=== PATIENT | male | born 1950 | race Caucasian/White ===

== ENCOUNTER 2019-07-13 10:39 | Inpatient (IN) ==
[2019-07-13 11:17] LABS: Basophils # 0.1 K/mcL (0.0-0.2); Basophils % 1.3 %; Eosinophils # 0.2 K/mcL (0.0-0.6); Eosinophils % 3.9 %; Hematocrit 37.6 % (37.5-50.1); Hemoglobin 12.3 g/dL (12.9-16.9); Immature Granulocytes % 0.3 % (0-4); Lymphocytes # 0.8 K/mcL (0.6-4.6); Lymphocytes % 19.3 %; Mean Corpuscular HGB Conc 32.7 g/dL (31.6-35.5); Mean Corpuscular Hemoglobin 31.4 pg (28.0-33.3); Mean Corpuscular Volume 95.9 fL (83.0-100.0); Mean Platelet Volume 11.7 fL (9.4-12.4); Monocytes # 0.4 K/mcL (0.0-1.3); Monocytes % 10.3 %; Neutrophils # 2.5 K/mcL (1.6-8.9); Platelet Count 168 K/mcL (140-400); Red Blood Count 3.92 M/mcL (4.19-5.50); Red Cell Distribution Width 14.6 % (11.5-14.5); Segmented Neutrophils % 64.9 %; White Blood Count 3.9 K/mcL (4.3-11.1)
[2019-07-13] MEDS ORDERED: Isovue-370 500 ML BOTTLE IVP ONE (11:29)
[2019-07-13 11:35] LABS: BUN/Creatinine Ratio 16 (6-26); Blood Urea Nitrogen 20 mg/dL (8-23); Carbon Dioxide 28 mEq/L (23-29); Chloride 105 mEq/L (98-107); Glucose 103 mg/dL (70-105); Osmolality,Calculated 297 (280-300); Potassium 4.7 mEq/L (3.5-5.1); Sodium 142 mEq/L (136-145); Troponin I < 0.03 ng/mL (< 0.04); eGFR For African Americans > 60 (> 60); eGFR For Non-African Americans 59 (> 60)
[2019-07-13] MEDS ORDERED: Naloxone 0.4 MG/ML INJ IVP PRN (16:44)
[2019-07-13] MEDS ORDERED: Ondansetron 4 MG/2 ML VIAL IVP PRN (16:44)
[2019-07-13] MEDS ORDERED: Acetaminophen 325 MG TABLET PO PRN (16:44)
[2019-07-13] MEDS: *HR* HYDROcodone/Acet 5/325 mg TABLET PO PRN (20:34)
[2019-07-13] MEDS: *HR* Heparin 5,000 UNIT/ML VIAL SQ SCH (20:35)
[2019-07-14 06:01] LABS: INR 1.1; Prothrombin Time 12.5 Seconds (9.4-12.1)
[2019-07-14 06:09] LABS: Basophils # 0.1 K/mcL (0.0-0.2); Basophils % 1.6 %; Eosinophils # 0.2 K/mcL (0.0-0.6); Eosinophils % 4.1 %; Hematocrit 36.6 % (37.5-50.1); Hemoglobin 12.3 g/dL (12.9-16.9); Immature Granulocytes % 0.3 % (0-4); Lymphocytes # 1.1 K/mcL (0.6-4.6); Lymphocytes % 29.1 %; Mean Corpuscular HGB Conc 33.6 g/dL (31.6-35.5); Mean Corpuscular Hemoglobin 31.8 pg (28.0-33.3); Mean Corpuscular Volume 94.6 fL (83.0-100.0); Mean Platelet Volume 11.8 fL (9.4-12.4); Monocytes # 0.5 K/mcL (0.0-1.3); Monocytes % 12.6 %; Neutrophils # 1.9 K/mcL (1.6-8.9); Platelet Count 162 K/mcL (140-400); Red Blood Count 3.87 M/mcL (4.19-5.50); Red Cell Distribution Width 14.4 % (11.5-14.5); Segmented Neutrophils % 52.3 %; White Blood Count 3.6 K/mcL (4.3-11.1)
[2019-07-14 06:24] LABS: BUN/Creatinine Ratio 11 (6-26); Blood Urea Nitrogen 14 mg/dL (8-23); Calcium 8.5 mg/dL (8.6-10.3); Carbon Dioxide 25 mEq/L (23-29); Chloride 105 mEq/L (98-107); Chol/HDL Ratio 2.5 (0-4.9); Cholesterol 90 mg/dL (< 200); Glucose 91 mg/dL (70-105); HDL Cholesterol 36 mg/dL (40-59); LDL Cholesterol,Calculated 36 mg/dL (0-99); Magnesium 1.9 mg/dL (1.6-2.6); Osmolality,Calculated 292 (280-300); Potassium 3.9 mEq/L (3.5-5.1); Sodium 141 mEq/L (136-145); Triglycerides 90 mg/dL (< 150); Troponin I < 0.03 ng/mL (< 0.04); eGFR For African Americans > 60 (> 60); eGFR For Non-African Americans 59 (> 60)
[2019-07-14] MEDS: *HR* Heparin 5,000 UNIT/ML VIAL SQ SCH ×2 (06:25→16:18)
[2019-07-14] MEDS: *HR* HYDROcodone/Acet 5/325 mg TABLET PO PRN ×3 (09:57→22:16)
[2019-07-14] MEDS: Aspirin Enteric Coated 81 MG Tablet PO SCH (09:57)
[2019-07-14] MEDS ORDERED: *HR* LORazepam 0.5 MG TABLET PO PRN (15:44)
[2019-07-14] MEDS: Gabapentin 300 MG CAPSULE PO SCH (21:02)
[2019-07-14] MEDS: Ibuprofen 800 MG TABLET PO PRN (21:02)
[2019-07-15 02:49] LABS: Hematocrit 36.5 % (37.5-50.1); Hemoglobin 12.6 g/dL (12.9-16.9); Mean Corpuscular HGB Conc 34.5 g/dL (31.6-35.5); Mean Corpuscular Hemoglobin 31.3 pg (28.0-33.3); Mean Corpuscular Volume 90.6 fL (83.0-100.0); Mean Platelet Volume 12.2 fL (9.4-12.4); Platelet Count 167 K/mcL (140-400); Red Blood Count 4.03 M/mcL (4.19-5.50); Red Cell Distribution Width 14.1 % (11.5-14.5); White Blood Count 4.4 K/mcL (4.3-11.1)
[2019-07-15 03:10] LABS: Calcium 8.5 mg/dL (8.6-10.3); Potassium 3.8 mEq/L (3.5-5.1)
[2019-07-15] MEDS: *HR* HYDROcodone/Acet 5/325 mg TABLET PO PRN (05:51)
[2019-07-15] MEDS: *HR* Heparin 5,000 UNIT/ML VIAL SQ SCH (05:52)
[2019-07-15] MEDS ORDERED: Finasteride 5 MG TABLET PO SCH (09:00)
[2019-07-15] MEDS ORDERED: Cyanocobalamin (B-12) 1,000 MCG TABLET PO SCH (09:00)
[2019-07-15] MEDS ORDERED: Multivit/Ca/Min/Fe/FA 1 TAB TABLET PO SCH (09:00)
[2019-07-15] MEDS: Gabapentin 300 MG CAPSULE PO SCH (09:02)
[2019-07-15] MEDS: Aspirin Enteric Coated 81 MG Tablet PO SCH (09:02)
[2019-07-15] MEDS: Ibuprofen 800 MG TABLET PO PRN (09:04)
[2019-07-15 11:44] VITALS: BP 145/96
== END 2019-07-15 14:37 | disposition home or self-care (01) | DRG 68 ==
LOC: 3BNU 10:39 → EMEROOARM 10:39 → 3BNU 18:05
PROVIDERS: ADMIT Internal Medicine; ATTEND Internal Medicine

== ENCOUNTER 2019-10-11 10:53 | Observation (INO) ==
[2019-10-11] MEDS ORDERED: 0.9 % Sodium Chloride 1,000 ML IVC STA (11:08)
[2019-10-11 11:21] LABS: Basophils % 0.6 %; Eosinophils % 0.4 %; Hematocrit 40.1 % (37.5-50.1); Hemoglobin 13.5 g/dL (12.9-16.9); Immature Granulocytes % 0.2 % (0-4); Lymphocytes # 0.7 K/mcL (0.6-4.6); Lymphocytes % 14.1 %; Mean Corpuscular HGB Conc 33.7 g/dL (31.6-35.5); Mean Corpuscular Hemoglobin 30.9 pg (28.0-33.3); Mean Corpuscular Volume 91.8 fL (83.0-100.0); Mean Platelet Volume 12.1 fL (9.4-12.4); Monocytes # 0.4 K/mcL (0.0-1.3); Monocytes % 6.9 %; Platelet Count 140 K/mcL (140-400); Red Blood Count 4.37 M/mcL (4.19-5.50); Red Cell Distribution Width 14.1 % (11.5-14.5); Segmented Neutrophils % 77.8 %; White Blood Count 5.1 K/mcL (4.3-11.1)
[2019-10-11] MEDS ORDERED: Ondansetron 4 MG/2 ML VIAL IVP STA (11:37)
[2019-10-11 11:43] LABS: Alanine Aminotransferase 12 Units/L (7-52); Albumin 4.4 g/dL (3.5-5.7); Albumin/Globulin Ratio 1.7 (1.1-2.2); Alkaline Phosphatase 64 Units/L (34-104); Aspartate Amino Transferase 17 Units/L (13-39); BUN/Creatinine Ratio 14 (6-26); Bilirubin,Total 0.6 mg/dL (0.3-1.0); Blood Urea Nitrogen 18 mg/dL (8-23); Calcium 9.4 mg/dL (8.6-10.3); Carbon Dioxide 26 mEq/L (23-29); Chloride 103 mEq/L (98-107); Globulin 2.6 g/dL (2.4-3.5); Glucose 108 mg/dL (70-105); Osmolality,Calculated 288 (280-300); Potassium 4.7 mEq/L (3.5-5.1); Sodium 138 mEq/L (136-145); Troponin I < 0.03 ng/mL (< 0.04); eGFR For African Americans > 60 (> 60); eGFR For Non-African Americans 57 (> 60)
[2019-10-11 11:48] LABS: Bilirubin,Urine Small (Negative); Blood,Urine Negative (Negative); Clarity,Urine Clear (Clear); Color,Urine Yellow (Yellow); Glucose,Urine (UA) Normal (Normal); Ketones,Urine Trace mg/dL (Negative); Leukocyte Esterase,Urine Small (Negative); Nitrite,Urine Negative (Negative); Protein,Urine Negative (Neg-Trace); Specific Gravity,Urine 1.022 (1.010-1.025); Urobilinogen,Urine Normal (Normal)
[2019-10-11 11:49] LABS: Bacteria,Urine None Seen per hpf (None-Few); Hyaline Casts,Urine None Seen per lpf (None-Few); RBC,Urine 0-3 per hpf (0-3); Squamous Epithelial Cell,Urine Moderate per lpf (None-Few)
[2019-10-11] MEDS ORDERED: Ondansetron 4 MG/2 ML VIAL IVP PRN (13:02)
[2019-10-11] MEDS ORDERED: Naloxone 0.4 MG/ML INJ IVP PRN (13:02)
[2019-10-11] MEDS ORDERED: *HR* LORazepam 0.5 MG TABLET PO PRN (13:04)
[2019-10-11] MEDS: Aspirin Enteric Coated 81 MG Tablet PO SCH (16:17)
[2019-10-11] MEDS: QUEtiapine Fumarate 25 MG TABLET PO SCH (16:17)
[2019-10-11] MEDS: *HR* Heparin 5,000 UNIT/ML VIAL SQ SCH (16:54)
[2019-10-11] MEDS ORDERED: Acetaminophen 325 MG TABLET PO ONE (17:04)
[2019-10-11] MEDS: Gabapentin 300 MG CAPSULE PO SCH (19:52)
[2019-10-12] MEDS: *HR* Heparin 5,000 UNIT/ML VIAL SQ SCH (06:07)
[2019-10-12] MEDS ORDERED: Acetaminophen 325 MG TABLET PO ONE (06:13)
[2019-10-12] MEDS ORDERED: Finasteride 5 MG TABLET PO SCH (09:00)
[2019-10-12] MEDS ORDERED: QUEtiapine Fumarate 25 MG TABLET PO SCH (09:00)
[2019-10-12] MEDS ORDERED: DUTASTERIDE PO SCH (09:00)
[2019-10-12] MEDS ORDERED: Cyanocobalamin (B-12) 1,000 MCG TABLET PO SCH (09:00)
[2019-10-12] MEDS ORDERED: Aspirin Enteric Coated 81 MG Tablet PO SCH (09:00)
[2019-10-12] MEDS ORDERED: TAMSULOSIN HCL PO SCH (09:00)
[2019-10-12] MEDS ORDERED: [UNRECOGNIZED DRUG - OTHER] PO SCH (09:00)
[2019-10-12] MEDS: Gabapentin 300 MG CAPSULE PO SCH (10:14)
[2019-10-12] MEDS: Aspirin Enteric Coated 81 MG Tablet PO SCH (10:14)
[2019-10-12] MEDS: QUEtiapine Fumarate 25 MG TABLET PO SCH (10:16)
[2019-10-12 11:14] VITALS: BP 117/66
[2019-10-12] MEDS ORDERED: levETIRAcetam 250 MG TABLET PO ONE (12:15)
== END 2019-10-12 14:10 | disposition home or self-care (01) ==
LOC: EMEROOARM 10:53 → 3BNU 10:53 → SUATTDRO 12:33 → 3BNU 13:18
PROVIDERS: ADMIT Internal Medicine; ATTEND Internal Medicine

== ENCOUNTER 2021-02-19 11:30 | Inpatient (IN) ==
[2021-02-19] MEDS ORDERED: Aspirin 325 MG TABLET PO ONE (11:57)
[2021-02-19 11:59] LABS: Basophils # 0.1 K/mcL (0.0-0.2); Basophils % 0.9 %; Eosinophils # 0.2 K/mcL (0.0-0.6); Eosinophils % 3.9 %; Hematocrit 39.1 % (37.5-50.1); Hemoglobin 13.2 g/dL (12.9-16.9); Immature Granulocytes % 0.4 % (0-4); Lymphocytes % 16.9 %; Mean Corpuscular HGB Conc 33.8 g/dL (31.6-35.5); Mean Corpuscular Hemoglobin 31.1 pg (28.0-33.3); Mean Platelet Volume 11.5 fL (9.4-12.4); Monocytes # 0.5 K/mcL (0.0-1.3); Monocytes % 8.4 %; Neutrophils # 3.9 K/mcL (1.6-8.9); Platelet Count 158 K/mcL (140-400); Red Blood Count 4.25 M/mcL (4.19-5.50); Red Cell Distribution Width 13.8 % (11.5-14.5); Segmented Neutrophils % 69.5 %; White Blood Count 5.6 K/mcL (4.3-11.1)
[2021-02-19 12:16] LABS: BUN/Creatinine Ratio 13 (6-26); Blood Urea Nitrogen 18 mg/dL (8-23); Calcium 9.1 mg/dL (8.6-10.3); Carbon Dioxide 24 mEq/L (23-29); Chloride 104 mEq/L (98-107); Glucose 106 mg/dL (70-105); Osmolality,Calculated 286 (280-300); Potassium 4.2 mEq/L (3.5-5.1); Sodium 137 mEq/L (136-145); eGFR For African Americans 59 (> 60); eGFR For Non-African Americans 49 (> 60)
[2021-02-19 12:24] LABS: Troponin I < 0.03 ng/mL (< 0.04)
[2021-02-19] MEDS: Nitroglycerin 0.4 MG TAB.SUBL SL SCH ×3 (12:43→18:02)
[2021-02-19] MEDS ORDERED: Ondansetron 4 MG/2 ML VIAL IVP PRN (13:07)
[2021-02-19] MEDS ORDERED: Naloxone 0.4 MG/ML INJ IVP PRN (13:07)
[2021-02-19] MEDS ORDERED: Perflutren Lipid Microsphere 1.3 ML in 0.9 % Sodium Chloride 8.7 ML IVP PRN (13:12)
[2021-02-19] MEDS: *HR* Heparin 5,000 UNIT/ML VIAL SQ SCH (17:54)
[2021-02-19] MEDS: *HR* LORazepam 2 MG/ML VIAL IVP PRN (17:54)
[2021-02-19] MEDS: 0.9 % Sodium Chloride 1,000 ML IVC SCH (17:54)
[2021-02-19] MEDS: levETIRAcetam 250 MG TABLET PO SCH (20:48)
[2021-02-19] MEDS ORDERED: Hydrocortisone 1% OINT 28 GM TUBE TP PRN (21:45)
[2021-02-20 01:17] LABS: Basophils # 0.1 K/mcL (0.0-0.2); Basophils % 0.9 %; Eosinophils # 0.3 K/mcL (0.0-0.6); Eosinophils % 4.7 %; Hematocrit 35.8 % (37.5-50.1); Hemoglobin 12.3 g/dL (12.9-16.9); Immature Granulocytes % 0.4 % (0-4); Lymphocytes # 1.1 K/mcL (0.6-4.6); Mean Corpuscular HGB Conc 34.4 g/dL (31.6-35.5); Mean Corpuscular Hemoglobin 31.1 pg (28.0-33.3); Mean Corpuscular Volume 90.6 fL (83.0-100.0); Mean Platelet Volume 11.5 fL (9.4-12.4); Monocytes # 0.5 K/mcL (0.0-1.3); Neutrophils # 3.4 K/mcL (1.6-8.9); Platelet Count 143 K/mcL (140-400); Red Blood Count 3.95 M/mcL (4.19-5.50); Red Cell Distribution Width 13.6 % (11.5-14.5); White Blood Count 5.3 K/mcL (4.3-11.1)
[2021-02-20 01:36] LABS: BUN/Creatinine Ratio 13 (6-26); Blood Urea Nitrogen 17 mg/dL (8-23); Calcium 8.5 mg/dL (8.6-10.3); Carbon Dioxide 25 mEq/L (23-29); Chloride 106 mEq/L (98-107); Glucose 85 mg/dL (70-105); Magnesium 1.8 mg/dL (1.6-2.6); Osmolality,Calculated 289 (280-300); Phosphorous 3.2 mg/dL (2.7-4.5); Potassium 4.1 mEq/L (3.5-5.1); Sodium 139 mEq/L (136-145); eGFR For African Americans > 60 (> 60); eGFR For Non-African Americans 52 (> 60)
[2021-02-20] MEDS: 0.9 % Sodium Chloride 1,000 ML IVC SCH ×3 (04:41→20:20)
[2021-02-20] MEDS: *HR* Heparin 5,000 UNIT/ML VIAL SQ SCH ×2 (04:41→17:25)
[2021-02-20] MEDS ORDERED: Regadenoson 0.4 MG/5 ML SYRINGE IVP ONE (06:15)
[2021-02-20] MEDS: *HR* LORazepam 2 MG/ML VIAL IVP PRN (08:02)
[2021-02-20] MEDS: Aspirin 81 MG TAB.CHEW PO SCH (11:23)
[2021-02-20] MEDS: levETIRAcetam 250 MG TABLET PO SCH ×2 (11:24→20:19)
[2021-02-20] MEDS ORDERED: *HR* LORazepam 0.5 MG TABLET PO PRN (12:46)
[2021-02-20] MEDS: Venlafaxine XR (24 HR) 75 MG CAP.ER.24H PO SCH (13:22)
[2021-02-20] MEDS: Gabapentin 300 MG CAPSULE PO SCH (20:19)
[2021-02-20] MEDS ORDERED: QUEtiapine Fumarate 25 MG TABLET PO SCH (21:00)
[2021-02-21] MEDS: *HR* Heparin 5,000 UNIT/ML VIAL SQ SCH (05:26)
[2021-02-21] MEDS: Aspirin 81 MG TAB.CHEW PO SCH (08:40)
[2021-02-21] MEDS: Venlafaxine XR (24 HR) 75 MG CAP.ER.24H PO SCH (08:40)
[2021-02-21] MEDS: levETIRAcetam 250 MG TABLET PO SCH (08:42)
[2021-02-21] MEDS: Gabapentin 300 MG CAPSULE PO SCH (08:43)
[2021-02-21] MEDS: 0.9 % Sodium Chloride 1,000 ML IVC SCH ×2 (08:44→13:13)
[2021-02-21] MEDS ORDERED: Lactobacillus 1 EACH CAP.SPRINK PO SCH (09:00)
[2021-02-21 09:16] LABS: BUN/Creatinine Ratio 15 (6-26); Blood Urea Nitrogen 17 mg/dL (8-23); Carbon Dioxide 23 mEq/L (23-29); Chloride 108 mEq/L (98-107); Glucose 70 mg/dL (70-105); Osmolality,Calculated 284 (280-300); Potassium 3.8 mEq/L (3.5-5.1); Sodium 137 mEq/L (136-145); eGFR For African Americans > 60 (> 60); eGFR For Non-African Americans > 60 (> 60)
[2021-02-21 10:07] VITALS: BP 124/65; PULSE 63; TEMP 97.8; O2SAT 98
== END 2021-02-21 15:06 | disposition home or self-care (01) | DRG 313 ==
LOC: 3ANU 11:30 → EMEROOARM 11:30 → 3ANU 14:54
PROVIDERS: ADMIT Student in an Organized Health Care Education/Training Program; ATTEND Student in an Organized Health Care Education/Training Program

== ENCOUNTER 2021-04-11 15:16 | Observation (INO) ==
[2021-04-11] MEDS ORDERED: 0.9 % Sodium Chloride 1,000 ML IVC ONE (15:23)
[2021-04-11 15:50] LABS: Basophils # 0.1 K/mcL (0.0-0.2); Basophils % 0.9 %; Eosinophils # 0.2 K/mcL (0.0-0.6); Eosinophils % 3.7 %; Hematocrit 36.6 % (37.5-50.1); Hemoglobin 12.3 g/dL (12.9-16.9); Immature Granulocytes % 0.4 % (0-4); Lymphocytes # 0.7 K/mcL (0.6-4.6); Lymphocytes % 12.9 %; Mean Corpuscular HGB Conc 33.6 g/dL (31.6-35.5); Mean Corpuscular Hemoglobin 30.4 pg (28.0-33.3); Mean Corpuscular Volume 90.6 fL (83.0-100.0); Mean Platelet Volume 11.2 fL (9.4-12.4); Monocytes # 0.6 K/mcL (0.0-1.3); Monocytes % 10.3 %; Neutrophils # 4.1 K/mcL (1.6-8.9); Platelet Count 161 K/mcL (140-400); Red Blood Count 4.04 M/mcL (4.19-5.50); Red Cell Distribution Width 13.5 % (11.5-14.5); Segmented Neutrophils % 71.8 %; White Blood Count 5.7 K/mcL (4.3-11.1)
[2021-04-11 15:52] LABS: VBG Ionized Calcium 1.19 mmol/L (1.15-1.35)
[2021-04-11] MEDS ORDERED: Isovue-370 500 ML BOTTLE IVP ONE (16:10)
[2021-04-11 16:19] LABS: Alanine Aminotransferase 8 Units/L (7-52); Albumin 3.9 g/dL (3.5-5.7); Albumin/Globulin Ratio 1.4 (1.1-2.2); Alkaline Phosphatase 64 Units/L (34-104); Aspartate Amino Transferase 15 Units/L (13-39); BUN/Creatinine Ratio 16 (6-26); Bilirubin,Total 0.4 mg/dL (0.3-1.0); Blood Urea Nitrogen 24 mg/dL (8-23); Carbon Dioxide 28 mEq/L (23-29); Chloride 103 mEq/L (98-107); Creatine Kinase 71 Units/L (30-223); Globulin 2.7 g/dL (2.4-3.5); Glucose 89 mg/dL (70-105); Magnesium 1.9 mg/dL (1.6-2.6); Osmolality,Calculated 288 (280-300); Phosphorous 2.5 mg/dL (2.7-4.5); Potassium 4.5 mEq/L (3.5-5.1); Sodium 137 mEq/L (136-145); Total Protein 6.6 g/dL (6.4-8.9); Troponin I < 0.03 ng/mL (< 0.04); eGFR For African Americans 55 (> 60); eGFR For Non-African Americans 45 (> 60)
[2021-04-11] MEDS ORDERED: Ondansetron 4 MG/2 ML VIAL IVP ONE (16:23)
[2021-04-11 16:32] LABS: Thyroid Stimulating Hormone 1.553 mcIU/mL (0.340-5.600)
[2021-04-11 16:49] LABS: INR 1.1; Prothrombin Time 12.8 Seconds (9.4-12.1)
[2021-04-11 17:51] LABS: Bilirubin,Urine Negative (Negative); Blood,Urine Negative (Negative); Clarity,Urine Clear (Clear); Color,Urine Light-Yellow (Yellow); Glucose,Urine (UA) Normal (Normal); Ketones,Urine Negative (Negative); Leukocyte Esterase,Urine Negative (Negative); Nitrite,Urine Negative (Negative); Protein,Urine Trace mg/dL (Neg-Trace); Urobilinogen,Urine Normal (Normal)
[2021-04-11 20:04] LABS: Adenovirus Not Detected (Not Detect); Bordetella Pertussis Not Detected (Not Detect); Chlamydophila pneumoniae Not Detected (Not Detect); Coronavirus 229E Not Detected (Not Detect); Coronavirus HKU1 Not Detected (Not Detect); Coronavirus NL63 Not Detected (Not Detect); Coronavirus OC43 Not Detected (Not Detect); Human Metapneumovirus Not Detected (Not Detect); Human Rhinovirus/Enterovirus Not Detected (Not Detect); Influenza A Subtype 2009 H1 Not Detected (Not Detect); Influenza B Not Detected (Not Detect); Mycoplasma pneumoniae Not Detected (Not Detect); Parainfluenza Virus 1 Not Detected (Not Detect); Parainfluenza Virus 2 Not Detected (Not Detect); Parainfluenza Virus 3 Not Detected (Not Detect); Parainfluenza Virus 4 Not Detected (Not Detect); Respiratory Syncytial Virus Not Detected (Not Detect); SARS-CoV-2 Not Detected (Not Detect)
[2021-04-11] MEDS ORDERED: *HR* FentaNYL (PF) 100 MCG/2 ML VIAL IVP ONE (21:22)
[2021-04-11] MEDS ORDERED: Melatonin 3 MG TABLET PO PRN (21:44)
[2021-04-11] MEDS ORDERED: Naloxone 0.4 MG/ML INJ IVP PRN (21:44)
[2021-04-11] MEDS ORDERED: Aspirin 81 MG TAB.CHEW PO SCH (22:00)
[2021-04-11] MEDS ORDERED: *HR* LORazepam 0.5 MG TABLET PO PRN (22:13)
[2021-04-11] MEDS ORDERED: 0.9 % Sodium Chloride 1,000 ML IVC SCH (22:15)
[2021-04-12 01:28] LABS: Hematocrit 35.9 % (37.5-50.1); Hemoglobin 12.1 g/dL (12.9-16.9); Mean Corpuscular HGB Conc 33.7 g/dL (31.6-35.5); Mean Corpuscular Hemoglobin 30.7 pg (28.0-33.3); Mean Corpuscular Volume 91.1 fL (83.0-100.0); Mean Platelet Volume 11.1 fL (9.4-12.4); Platelet Count 145 K/mcL (140-400); Red Blood Count 3.94 M/mcL (4.19-5.50); Red Cell Distribution Width 13.4 % (11.5-14.5); White Blood Count 4.6 K/mcL (4.3-11.1)
[2021-04-12 01:56] LABS: BUN/Creatinine Ratio 17 (6-26); Blood Urea Nitrogen 22 mg/dL (8-23); Calcium 8.6 mg/dL (8.6-10.3); Carbon Dioxide 26 mEq/L (23-29); Chloride 105 mEq/L (98-107); Glucose 91 mg/dL (70-105); Osmolality,Calculated 289 (280-300); Phosphorous 3.4 mg/dL (2.7-4.5); Potassium 4.1 mEq/L (3.5-5.1); Sodium 138 mEq/L (136-145); eGFR For African Americans > 60 (> 60); eGFR For Non-African Americans 53 (> 60)
[2021-04-12] MEDS ORDERED: *HR* Heparin 5,000 UNIT/ML VIAL SQ SCH (06:00)
[2021-04-12] MEDS ORDERED: Gabapentin 300 MG CAPSULE PO SCH (09:00)
[2021-04-12] MEDS ORDERED: Venlafaxine XR (24 HR) 75 MG CAP.ER.24H PO SCH (09:00)
[2021-04-12] MEDS ORDERED: Isosorbide MONOnitrate (24 HR) 30 MG TAB.ER.24H PO SCH (09:00)
[2021-04-12] MEDS ORDERED: levETIRAcetam 250 MG TABLET PO SCH (09:00)
[2021-04-12] MEDS ORDERED: Nitroglycerin 0.4 MG TAB.SUBL SL PRN (09:24)
[2021-04-12] MEDS ORDERED: Acetaminophen 325 MG TABLET PO PRN (09:41)
[2021-04-12 10:52] VITALS: BP 121/65; PULSE 61; TEMP 98.1; O2SAT 93
[2021-04-12] MEDS ORDERED: Pantoprazole 40 MG VIAL IVP SCH (23:04)
== END 2021-04-12 16:08 | disposition home or self-care (01) ==
LOC: 3BNU 15:16 → EMEROOARM 15:16 → 3BNU 22:34
PROVIDERS: ADMIT Student in an Organized Health Care Education/Training Program; ATTEND Student in an Organized Health Care Education/Training Program

== ENCOUNTER 2021-07-04 20:48 | Inpatient (IN) ==
[2021-07-04] MEDS ORDERED: Isovue-370 500 ML BOTTLE IVP ONE (23:49)
[2021-07-04] MEDS ORDERED: 0.9 % Sodium Chloride 1,000 ML IV ONE (23:50)
[2021-07-05 00:20] LABS: Basophils % 0.6 %; Eosinophils # 0.1 K/mcL (0.0-0.6); Immature Granulocytes % 0.4 % (0-4); Lymphocytes # 0.9 K/mcL (0.6-4.6); Lymphocytes % 12.9 %; Mean Corpuscular HGB Conc 34.3 g/dL (31.6-35.5); Mean Corpuscular Volume 87.5 fL (83.0-100.0); Mean Platelet Volume 11.5 fL (9.4-12.4); Monocytes # 0.5 K/mcL (0.0-1.3); Monocytes % 7.3 %; Neutrophils # 5.4 K/mcL (1.6-8.9); Platelet Count 150 K/mcL (140-400); Red Cell Distribution Width 13.6 % (11.5-14.5); Segmented Neutrophils % 77.8 %
[2021-07-05 00:24] LABS: Alanine Aminotransferase 11 Units/L (7-52); Albumin 4.2 g/dL (3.5-5.7); Albumin/Globulin Ratio 1.5 (1.1-2.2); Alkaline Phosphatase 72 Units/L (34-104); Aspartate Amino Transferase 16 Units/L (13-39); BUN/Creatinine Ratio 15 (6-26); Bilirubin,Direct 0.1 mg/dL (0.0-0.2); Bilirubin,Indirect 0.4 mg/dL (0.0-1.0); Bilirubin,Total 0.5 mg/dL (0.3-1.0); Blood Urea Nitrogen 24 mg/dL (8-23); C-Reactive Protein 6 mg/L (Less than 10); Calcium 9.6 mg/dL (8.6-10.3); Carbon Dioxide 25 mEq/L (23-29); Chloride 104 mEq/L (98-107); Globulin 2.8 g/dL (2.4-3.5); Glucose 100 mg/dL (70-105); Lipase 25 Units/L (11-82); Osmolality,Calculated 294 (280-300); Potassium 4.3 mEq/L (3.5-5.1); Sodium 140 mEq/L (136-145); Troponin I < 0.03 ng/mL (< 0.04); eGFR For African Americans 52 (> 60); eGFR For Non-African Americans 43 (> 60)
[2021-07-05 00:36] LABS: Influenza A PCR Negative (Negative); Influenza B PCR Negative (Negative); Resp. Syncytial Virus PCR Negative (Negative)
[2021-07-05 00:37] LABS: SARS-CoV-2 by PCR (In House) Negative (Negative)
[2021-07-05 00:50] LABS: Bilirubin,Urine Negative (Negative); Blood,Urine Negative (Negative); Clarity,Urine Clear (Clear); Color,Urine Light-Yellow (Yellow); Glucose,Urine (UA) Normal (Normal); Ketones,Urine Negative (Negative); Leukocyte Esterase,Urine Negative (Negative); Nitrite,Urine Negative (Negative); Protein,Urine Trace mg/dL (Neg-Trace); Specific Gravity,Urine 1.018 (1.010-1.025); Urobilinogen,Urine Normal (Normal)
[2021-07-05] MEDS ORDERED: *HR* HYDROcodone/Acet 10/325 mg TABLET PO ONE (03:46)
[2021-07-05] MEDS ORDERED: Perflutren Lipid Microsphere 1.3 ML in 0.9 % Sodium Chloride 8.7 ML IVP PRN (04:47)
[2021-07-05] MEDS ORDERED: Ondansetron 4 MG/2 ML VIAL IVP PRN (04:56)
[2021-07-05] MEDS ORDERED: Acetaminophen 325 MG TABLET PO PRN (04:56)
[2021-07-05] MEDS ORDERED: Naloxone 0.4 MG/ML INJ IVP PRN (04:56)
[2021-07-05] MEDS ORDERED: hydrOXYzine pamoate 25 MG CAPSULE PO PRN (06:07)
[2021-07-05] MEDS ORDERED: *HR* LORazepam 0.5 MG TABLET PO PRN (06:08)
[2021-07-05 06:52] LABS: % Iron Saturation 33 % (20-55); Iron 76 mcg/dL (65-175); Magnesium 1.9 mg/dL (1.6-2.6); Transferrin 165 mg/dL (203-362)
[2021-07-05 06:53] LABS: Troponin I < 0.03 ng/mL (< 0.04)
[2021-07-05 07:06] LABS: Thyroid Stimulating Hormone 3.625 mcIU/mL (0.340-5.600)
[2021-07-05] MEDS: Venlafaxine XR (24 HR) 150 MG CAP.ER.24H PO SCH (08:47)
[2021-07-05] MEDS: Isosorbide MONOnitrate (24 HR) 30 MG TAB.ER.24H PO SCH (08:47)
[2021-07-05] MEDS: Gabapentin 300 MG CAPSULE PO SCH ×2 (08:47→21:05)
[2021-07-05] MEDS: Aspirin Enteric Coated 81 MG Tablet PO SCH (08:48)
[2021-07-05] MEDS: levETIRAcetam 500 MG/5 ML UDC PO SCH ×2 (10:08→21:04)
[2021-07-05] MEDS: Cyanocobalamin (B-12) 1,000 MCG TABLET PO SCH (13:56)
[2021-07-05] MEDS: QUEtiapine Fumarate 25 MG TABLET PO SCH (21:05)
[2021-07-06 07:39] LABS: Hematocrit 34.1 % (37.5-50.1); Hemoglobin 11.2 g/dL (12.9-16.9); Immature Platelets 5.3 % (1.1-6.1); Mean Corpuscular HGB Conc 32.8 g/dL (31.6-35.5); Mean Corpuscular Volume 91.4 fL (83.0-100.0); Mean Platelet Volume 11.2 fL (9.4-12.4); Red Blood Count 3.73 M/mcL (4.19-5.50); Red Cell Distribution Width 14.3 % (11.5-14.5)
[2021-07-06 07:43] LABS: INR 1.1
[2021-07-06 07:46] LABS: Activated Partial Thrombo Time 34.4 Seconds (26.0-36.0)
[2021-07-06 08:48] LABS: Calcium 8.6 mg/dL (8.6-10.3); Chol/HDL Ratio 2.4 (0-4.9); Potassium 3.8 mEq/L (3.5-5.1)
[2021-07-06] MEDS: Aspirin Enteric Coated 81 MG Tablet PO SCH (09:50)
[2021-07-06] MEDS: Cyanocobalamin (B-12) 1,000 MCG TABLET PO SCH (09:50)
[2021-07-06] MEDS: Gabapentin 300 MG CAPSULE PO SCH ×2 (09:50→19:51)
[2021-07-06] MEDS: Isosorbide MONOnitrate (24 HR) 30 MG TAB.ER.24H PO SCH (09:50)
[2021-07-06] MEDS: Venlafaxine XR (24 HR) 150 MG CAP.ER.24H PO SCH (09:50)
[2021-07-06] MEDS: levETIRAcetam 500 MG/5 ML UDC PO SCH ×2 (09:51→19:51)
[2021-07-06] MEDS: QUEtiapine Fumarate 25 MG TABLET PO SCH (22:21)
[2021-07-07 04:39] LABS: Red Cell Distribution Width 13.8 % (11.5-14.5)
[2021-07-07 04:41] LABS: Hematocrit 35.2 % (37.5-50.1); Hemoglobin 11.7 g/dL (12.9-16.9); Immature Platelets 5.3 % (1.1-6.1); Mean Corpuscular HGB Conc 33.2 g/dL (31.6-35.5); Mean Corpuscular Volume 90.3 fL (83.0-100.0); Mean Platelet Volume 11.4 fL (9.4-12.4); Red Blood Count 3.9 M/mcL (4.19-5.50); White Blood Count 3.5 K/mcL (4.3-11.1)
[2021-07-07 04:48] LABS: Calcium 8.7 mg/dL (8.6-10.3); Potassium 3.6 mEq/L (3.5-5.1)
[2021-07-07] MEDS: Venlafaxine XR (24 HR) 150 MG CAP.ER.24H PO SCH (09:44)
[2021-07-07] MEDS: levETIRAcetam 500 MG/5 ML UDC PO SCH (09:45)
[2021-07-07] MEDS: Aspirin Enteric Coated 81 MG Tablet PO SCH (09:45)
[2021-07-07] MEDS: Gabapentin 300 MG CAPSULE PO SCH (09:45)
[2021-07-07] MEDS: Cyanocobalamin (B-12) 1,000 MCG TABLET PO SCH (09:45)
[2021-07-07] MEDS: Isosorbide MONOnitrate (24 HR) 30 MG TAB.ER.24H PO SCH (09:45)
[2021-07-07 11:42] VITALS: BP 134/79; PULSE 75; TEMP 98; O2SAT 95
== END 2021-07-07 13:57 | disposition home health service (06) | DRG 881 ==
LOC: 4WAOSI 20:48 → EMEROOARM 20:48 → SUATTDRO 07-05 03:42 → 4WAOSI 07-05 04:47
PROVIDERS: ADMIT Student in an Organized Health Care Education/Training Program; ATTEND Family Medicine

== ENCOUNTER 2021-09-25 08:34 | Inpatient (IN) ==
[2021-09-25] MEDS ORDERED: Albuterol 2.5 MG/3 ML NEBULIZER IH PRN ×2 (09:25→09:39)
[2021-09-25] MEDS ORDERED: CeFAZolin Syr 2,000MG/20 ML 2,000 MG/20 ML SYRINGE IVPB ONE ×2 (09:25→09:39)
[2021-09-25] MEDS ORDERED: Ringers Solution, Lactated 1,000 ML IVC SCH ×2 (09:30→09:45)
[2021-09-25] MEDS ORDERED: Ondansetron 4 MG/2 ML VIAL IVP PRN ×2 (10:42→17:42)
[2021-09-25] MEDS ORDERED: *HR* FentaNYL (PF) 100 MCG/2 ML VIAL IVP PRN (10:42)
[2021-09-25] MEDS ORDERED: Famotidine 20 MG TABLET PO ONE (10:45)
[2021-09-25] MEDS ORDERED: ROPIVACAINE/PF/NS 0.25% 1 EACH SYRINGE INTRAART ONE (11:37)
[2021-09-25] MEDS ORDERED: *HR* Propofol 200 MG/20 ML VIAL IVP ONE ×3 (11:42→13:47)
[2021-09-25] MEDS ORDERED: Ondansetron 4 MG/2 ML VIAL ONE (11:44)
[2021-09-25] MEDS ORDERED: Lidocaine -MPF 2% 5 ML VIAL ONE (11:44)
[2021-09-25] MEDS ORDERED: Vancomycin 1,000 MG VIAL ONE (12:18)
[2021-09-25] MEDS ORDERED: TOTAL JOINT MIXTURE (100ML) INTRAART ONE (12:45)
[2021-09-25] MEDS ORDERED: Povidone-Iodine 45 ML, Sodium Chloride IRRigation 1,000 ML IR ONE (12:45)
[2021-09-25] MEDS ORDERED: Tranexamic Acid 1,000 MG/10 ML VIAL ONE ×2 (13:02→14:16)
[2021-09-25] MEDS ORDERED: *HR* FentaNYL (PF) 100 MCG/2 ML VIAL ONE (13:16)
[2021-09-25] MEDS ORDERED: Ketamine HCL *QUVA* 50mg (1mL) SYRINGE ONE (13:19)
[2021-09-25] MEDS: *HR* HYDROmorphone PF 0.5 MG/0.5 ML SYRINGE IVP PRN ×2 (15:21→15:26)
[2021-09-25] MEDS ORDERED: *HR* OxyCODONE Immed Rel 5 MG TABLET PO PRN (16:05)
[2021-09-25] MEDS ORDERED: *HR* Promethazine 25 MG/ML VIAL IM PRN (17:42)
[2021-09-25] MEDS ORDERED: Naloxone 0.4 MG/ML INJ IVP PRN (17:42)
[2021-09-25] MEDS ORDERED: Sennosides 8.6 MG TABLET PO PRN (17:42)
[2021-09-25] MEDS ORDERED: MOM Conc 10 ML UD.LIQ PO PRN (17:42)
[2021-09-25] MEDS: Ketorolac 30 MG/ML VIAL IVP SCH ×2 (18:56→23:24)
[2021-09-25] MEDS: Ascorbic Acid 500 MG TABLET PO SCH (18:56)
[2021-09-25] MEDS: Gabapentin 300 MG CAPSULE PO SCH (20:42)
[2021-09-25] MEDS: levETIRAcetam 250 MG TABLET PO SCH (20:43)
[2021-09-25] MEDS: CeFAZolin 2 GM/100 ML BAG IVPB SCH (20:43)
[2021-09-26] MEDS: CeFAZolin 2 GM/100 ML BAG IVPB SCH (04:23)
[2021-09-26 05:31] LABS: Basophils % 0.1 %; Hematocrit 29.7 % (37.5-50.1); Hemoglobin 10.3 g/dL (12.9-16.9); Immature Granulocytes % 0.3 % (0-4); Lymphocytes # 0.5 K/mcL (0.6-4.6); Lymphocytes % 7.3 %; Mean Corpuscular HGB Conc 34.7 g/dL (31.6-35.5); Mean Corpuscular Hemoglobin 31.5 pg (28.0-33.3); Mean Corpuscular Volume 90.8 fL (83.0-100.0); Mean Platelet Volume 11.4 fL (9.4-12.4); Monocytes # 0.6 K/mcL (0.0-1.3); Monocytes % 7.7 %; Neutrophils # 6.3 K/mcL (1.6-8.9); Platelet Count 134 K/mcL (140-400); Red Blood Count 3.27 M/mcL (4.19-5.50); Red Cell Distribution Width 13.2 % (11.5-14.5); Segmented Neutrophils % 84.6 %; White Blood Count 7.4 K/mcL (4.3-11.1)
[2021-09-26] MEDS: Ketorolac 30 MG/ML VIAL IVP SCH (05:39)
[2021-09-26 05:55] LABS: Calcium 8.7 mg/dL (8.6-10.3); Potassium 4.6 mEq/L (3.5-5.1)
[2021-09-26] MEDS: levETIRAcetam 250 MG TABLET PO SCH (07:59)
[2021-09-26] MEDS: Ascorbic Acid 500 MG TABLET PO SCH ×2 (08:00→16:48)
[2021-09-26] MEDS: amLODIPine 5 MG TABLET PO SCH (08:00)
[2021-09-26] MEDS: Gabapentin 300 MG CAPSULE PO SCH ×2 (08:00→21:17)
[2021-09-26] MEDS: Cyanocobalamin (B-12) 1,000 MCG TABLET PO SCH (08:01)
[2021-09-26] MEDS: Multivit/Ca/Min/Fe/FA 1 TAB TABLET PO SCH (08:01)
[2021-09-26] MEDS ORDERED: MULTIVIT MIN PO SCH (09:00)
[2021-09-26] MEDS ORDERED: FOLIC PO SCH (09:00)
[2021-09-26] MEDS ORDERED: LYCOP PO SCH (09:00)
[2021-09-26] MEDS ORDERED: [UNRECOGNIZED DRUG - OTHER] PO SCH (09:00)
[2021-09-26] MEDS ORDERED: VIT K PO SCH (09:00)
[2021-09-26] MEDS ORDERED: Naloxone 0.4 MG/ML INJ IVP PRN (12:57)
[2021-09-26] MEDS ORDERED: Ondansetron 4 MG/2 ML VIAL IVP PRN (13:01)
[2021-09-26] MEDS ORDERED: *HR* LORazepam 2 MG/ML VIAL IVP ONE (13:15)
[2021-09-26] MEDS: Ringers Solution, Lactated 1,000 ML IVC SCH (16:49)
[2021-09-26] MEDS: Aspirin Enteric Coated 81 MG Tablet PO SCH (16:51)
[2021-09-26] MEDS: *HR* OxyCODONE Immed Rel 5 MG TABLET PO PRN (22:22)
[2021-09-27 06:32] LABS: Basophils % 0.9 %; Hemoglobin 11.1 g/dL (12.9-16.9); Immature Granulocytes % 0.4 % (0-4); Mean Corpuscular Hemoglobin 31.1 pg (28.0-33.3); Mean Platelet Volume 10.7 fL (9.4-12.4); Platelet Count 139 K/mcL (140-400); Red Blood Count 3.57 M/mcL (4.19-5.50); Red Cell Distribution Width 13.9 % (11.5-14.5)
[2021-09-27 06:34] LABS: Eosinophils # 0.1 K/mcL (0.0-0.6); Eosinophils % 2.2 %; Hematocrit 32.7 % (37.5-50.1); Immature Platelets 4.4 % (1.1-6.1); Lymphocytes # 0.8 K/mcL (0.6-4.6); Lymphocytes % 18.2 %; Mean Corpuscular HGB Conc 33.9 g/dL (31.6-35.5); Mean Corpuscular Volume 91.6 fL (83.0-100.0); Monocytes # 0.6 K/mcL (0.0-1.3); Segmented Neutrophils % 64.3 %; White Blood Count 4.6 K/mcL (4.3-11.1)
[2021-09-27 06:55] LABS: BUN/Creatinine Ratio 15 (6-26); Blood Urea Nitrogen 21 mg/dL (8-23); Carbon Dioxide 29 mEq/L (23-29); Chloride 104 mEq/L (98-107); Glucose 78 mg/dL (70-105); Osmolality,Calculated 292 (280-300); Potassium 3.8 mEq/L (3.5-5.1); Sodium 140 mEq/L (136-145); eGFR For African Americans > 60 (> 60); eGFR For Non-African Americans 50 (> 60)
[2021-09-27] MEDS: Ringers Solution, Lactated 1,000 ML IVC SCH (07:32)
[2021-09-27] MEDS: Ascorbic Acid 500 MG TABLET PO SCH ×2 (08:18→16:50)
[2021-09-27] MEDS: Gabapentin 300 MG CAPSULE PO SCH ×2 (08:19→21:54)
[2021-09-27] MEDS: Multivit/Ca/Min/Fe/FA 1 TAB TABLET PO SCH (08:19)
[2021-09-27] MEDS: Cyanocobalamin (B-12) 1,000 MCG TABLET PO SCH (08:20)
[2021-09-27] MEDS: Aspirin Enteric Coated 81 MG Tablet PO SCH (08:20)
[2021-09-27] MEDS: amLODIPine 5 MG TABLET PO SCH (08:20)
[2021-09-27] MEDS: *HR* OxyCODONE Immed Rel 5 MG TABLET PO PRN ×3 (09:44→21:58)
[2021-09-27] MEDS ORDERED: polyethylene glycoL 3350 17 GM POWD.PACK PO PRN (17:17)
[2021-09-27] MEDS: levETIRAcetam 250 MG TABLET PO SCH (17:41)
[2021-09-27] MEDS: Morphine Sulfate 2 MG/ML SYRINGE IVP PRN (17:42)
[2021-09-28] MEDS: levETIRAcetam 250 MG TABLET PO SCH ×2 (04:56→16:45)
[2021-09-28] MEDS: *HR* OxyCODONE Immed Rel 5 MG TABLET PO PRN ×3 (04:56→22:45)
[2021-09-28 05:41] LABS: Basophils # 0.1 K/mcL (0.0-0.2); Eosinophils # 0.2 K/mcL (0.0-0.6); Eosinophils % 3.4 %; Hematocrit 33.4 % (37.5-50.1); Hemoglobin 11.7 g/dL (12.9-16.9); Immature Granulocytes % 0.2 % (0-4); Lymphocytes # 0.9 K/mcL (0.6-4.6); Lymphocytes % 17.5 %; Mean Corpuscular Hemoglobin 31.5 pg (28.0-33.3); Mean Corpuscular Volume 89.8 fL (83.0-100.0); Mean Platelet Volume 10.6 fL (9.4-12.4); Monocytes # 0.6 K/mcL (0.0-1.3); Monocytes % 12.9 %; Neutrophils # 3.2 K/mcL (1.6-8.9); Platelet Count 150 K/mcL (140-400); Red Blood Count 3.72 M/mcL (4.19-5.50); Red Cell Distribution Width 13.9 % (11.5-14.5)
[2021-09-28 06:03] LABS: BUN/Creatinine Ratio 16 (6-26); Blood Urea Nitrogen 20 mg/dL (8-23); Calcium 8.8 mg/dL (8.6-10.3); Carbon Dioxide 27 mEq/L (23-29); Chloride 103 mEq/L (98-107); Glucose 118 mg/dL (70-105); Magnesium 1.8 mg/dL (1.6-2.6); Osmolality,Calculated 290 (280-300); Potassium 3.6 mEq/L (3.5-5.1); Sodium 138 mEq/L (136-145); eGFR For African Americans > 60 (> 60); eGFR For Non-African Americans 58 (> 60)
[2021-09-28 06:20] LABS: Prolactin 6.43 ng/mL (3.00-14.70)
[2021-09-28] MEDS: Morphine Sulfate 2 MG/ML SYRINGE IVP PRN (08:40)
[2021-09-28] MEDS: Cyanocobalamin (B-12) 1,000 MCG TABLET PO SCH (08:41)
[2021-09-28] MEDS: Venlafaxine XR (24 HR) 75 MG CAP.ER.24H PO SCH (08:41)
[2021-09-28] MEDS: Gabapentin 300 MG CAPSULE PO SCH ×2 (08:41→19:45)
[2021-09-28] MEDS: amLODIPine 5 MG TABLET PO SCH (08:42)
[2021-09-28] MEDS: Multivit/Ca/Min/Fe/FA 1 TAB TABLET PO SCH (08:42)
[2021-09-28] MEDS: QUEtiapine Fumarate 25 MG TABLET PO SCH (08:42)
[2021-09-28] MEDS: Lactobacillus 1 EACH CAP.SPRINK PO SCH (08:42)
[2021-09-28] MEDS: Aspirin Enteric Coated 81 MG Tablet PO SCH (08:42)
[2021-09-28] MEDS: Ascorbic Acid 500 MG TABLET PO SCH ×2 (08:42→16:46)
[2021-09-28] MEDS ORDERED: Isovue-370 500 ML BOTTLE IVP ONE (10:05)
[2021-09-29] MEDS: levETIRAcetam 250 MG TABLET PO SCH ×2 (06:00→17:30)
[2021-09-29 07:27] LABS: Basophils % 0.6 %; Eosinophils # 0.3 K/mcL (0.0-0.6); Hematocrit 35.5 % (37.5-50.1); Immature Granulocytes % 0.5 % (0-4); Lymphocytes # 0.7 K/mcL (0.6-4.6); Lymphocytes % 10.7 %; Mean Corpuscular HGB Conc 33.8 g/dL (31.6-35.5); Mean Corpuscular Volume 91.7 fL (83.0-100.0); Mean Platelet Volume 10.9 fL (9.4-12.4); Monocytes # 0.6 K/mcL (0.0-1.3); Monocytes % 8.9 %; Neutrophils # 4.7 K/mcL (1.6-8.9); Platelet Count 157 K/mcL (140-400); Red Blood Count 3.87 M/mcL (4.19-5.50); Red Cell Distribution Width 14.4 % (11.5-14.5); Segmented Neutrophils % 75.3 %; White Blood Count 6.2 K/mcL (4.3-11.1)
[2021-09-29] MEDS: *HR* OxyCODONE Immed Rel 5 MG TABLET PO PRN ×2 (08:25→17:29)
[2021-09-29] MEDS: Cyanocobalamin (B-12) 1,000 MCG TABLET PO SCH (08:25)
[2021-09-29] MEDS: Venlafaxine XR (24 HR) 75 MG CAP.ER.24H PO SCH (08:25)
[2021-09-29] MEDS: Ascorbic Acid 500 MG TABLET PO SCH ×2 (08:25→17:29)
[2021-09-29] MEDS: Gabapentin 300 MG CAPSULE PO SCH ×2 (08:25→20:15)
[2021-09-29] MEDS: Lactobacillus 1 EACH CAP.SPRINK PO SCH (08:26)
[2021-09-29] MEDS: Multivit/Ca/Min/Fe/FA 1 TAB TABLET PO SCH (08:26)
[2021-09-29] MEDS: QUEtiapine Fumarate 25 MG TABLET PO SCH (08:26)
[2021-09-29] MEDS: Aspirin Enteric Coated 81 MG Tablet PO SCH (08:26)
[2021-09-29] MEDS: amLODIPine 5 MG TABLET PO SCH (08:26)
[2021-09-29 08:36] LABS: BUN/Creatinine Ratio 16 (6-26); Blood Urea Nitrogen 19 mg/dL (8-23); Calcium 8.9 mg/dL (8.6-10.3); Carbon Dioxide 30 mEq/L (23-29); Chloride 103 mEq/L (98-107); Glucose 124 mg/dL (70-105); Magnesium 1.9 mg/dL (1.6-2.6); Osmolality,Calculated 296 (280-300); Potassium 3.9 mEq/L (3.5-5.1); Sodium 141 mEq/L (136-145); eGFR For African Americans > 60 (> 60); eGFR For Non-African Americans 59 (> 60)
[2021-09-29] MEDS: Morphine Sulfate 2 MG/ML SYRINGE IVP PRN (20:16)
[2021-09-30] MEDS: *HR* OxyCODONE Immed Rel 5 MG TABLET PO PRN ×3 (04:26→22:05)
[2021-09-30 05:08] LABS: Basophils % 0.5 %; Eosinophils # 0.3 K/mcL (0.0-0.6); Eosinophils % 3.1 %; Hematocrit 34.5 % (37.5-50.1); Hemoglobin 11.5 g/dL (12.9-16.9); Immature Granulocytes % 0.4 % (0-4); Lymphocytes # 0.6 K/mcL (0.6-4.6); Lymphocytes % 7.3 %; Mean Corpuscular HGB Conc 33.3 g/dL (31.6-35.5); Mean Corpuscular Hemoglobin 31.1 pg (28.0-33.3); Mean Corpuscular Volume 93.2 fL (83.0-100.0); Mean Platelet Volume 10.5 fL (9.4-12.4); Monocytes # 0.6 K/mcL (0.0-1.3); Monocytes % 6.9 %; Neutrophils # 6.5 K/mcL (1.6-8.9); Platelet Count 178 K/mcL (140-400); Red Cell Distribution Width 14.3 % (11.5-14.5); Segmented Neutrophils % 81.8 %
[2021-09-30] MEDS: Morphine Sulfate 2 MG/ML SYRINGE IVP PRN (05:14)
[2021-09-30 05:26] LABS: BUN/Creatinine Ratio 19 (6-26); Blood Urea Nitrogen 21 mg/dL (8-23); Calcium 8.9 mg/dL (8.6-10.3); Carbon Dioxide 28 mEq/L (23-29); Chloride 104 mEq/L (98-107); Glucose 130 mg/dL (70-105); Magnesium 1.8 mg/dL (1.6-2.6); Osmolality,Calculated 295 (280-300); Potassium 3.9 mEq/L (3.5-5.1); Sodium 140 mEq/L (136-145); eGFR For African Americans > 60 (> 60); eGFR For Non-African Americans > 60 (> 60)
[2021-09-30] MEDS ORDERED: *HR* Metoprolol 5 MG/5 ML VIAL IVP ONE (05:32)
[2021-09-30] MEDS: *HR* Metoprolol 5 MG/5 ML VIAL IVP ONE ×2 (05:33→05:51)
[2021-09-30 05:43] LABS: Troponin I < 0.03 ng/mL (< 0.04)
[2021-09-30] MEDS: levETIRAcetam 250 MG TABLET PO SCH ×2 (05:53→18:28)
[2021-09-30] MEDS: Aspirin Enteric Coated 81 MG Tablet PO SCH (08:52)
[2021-09-30] MEDS: Ascorbic Acid 500 MG TABLET PO SCH ×2 (08:52→17:04)
[2021-09-30] MEDS: QUEtiapine Fumarate 25 MG TABLET PO SCH (08:53)
[2021-09-30] MEDS: Cyanocobalamin (B-12) 1,000 MCG TABLET PO SCH (08:53)
[2021-09-30] MEDS: Multivit/Ca/Min/Fe/FA 1 TAB TABLET PO SCH (08:53)
[2021-09-30] MEDS: Gabapentin 300 MG CAPSULE PO SCH ×2 (08:53→20:27)
[2021-09-30] MEDS: amLODIPine 5 MG TABLET PO SCH (08:53)
[2021-09-30] MEDS: Lactobacillus 1 EACH CAP.SPRINK PO SCH (08:54)
[2021-09-30] MEDS: Venlafaxine XR (24 HR) 75 MG CAP.ER.24H PO SCH (08:54)
[2021-09-30 14:36] LABS: Adenovirus Not Detected (Not Detect); Bordetella Pertussis Not Detected (Not Detect); Chlamydophila pneumoniae Not Detected (Not Detect); Coronavirus 229E Not Detected (Not Detect); Coronavirus HKU1 Not Detected (Not Detect); Coronavirus NL63 Not Detected (Not Detect); Coronavirus OC43 Not Detected (Not Detect); Human Metapneumovirus Not Detected (Not Detect); Human Rhinovirus/Enterovirus Not Detected (Not Detect); Influenza A Subtype 2009 H1 Not Detected (Not Detect); Influenza B Not Detected (Not Detect); Mycoplasma pneumoniae Not Detected (Not Detect); Parainfluenza Virus 1 Not Detected (Not Detect); Parainfluenza Virus 2 Not Detected (Not Detect); Parainfluenza Virus 3 Not Detected (Not Detect); Parainfluenza Virus 4 Not Detected (Not Detect); Respiratory Syncytial Virus Not Detected (Not Detect); SARS-CoV-2 Not Detected (Not Detect)
[2021-09-30] MEDS ORDERED: *HR* LORazepam 2 MG/ML VIAL IVP PRN (15:01)
[2021-10-01 04:41] LABS: Basophils % 0.6 %; Eosinophils # 0.2 K/mcL (0.0-0.6); Eosinophils % 3.6 %; Hematocrit 33.9 % (37.5-50.1); Hemoglobin 11.3 g/dL (12.9-16.9); Immature Granulocytes % 0.2 % (0-4); Lymphocytes # 0.6 K/mcL (0.6-4.6); Lymphocytes % 11.7 %; Mean Corpuscular HGB Conc 33.3 g/dL (31.6-35.5); Mean Corpuscular Hemoglobin 30.7 pg (28.0-33.3); Mean Corpuscular Volume 92.1 fL (83.0-100.0); Mean Platelet Volume 10.6 fL (9.4-12.4); Monocytes # 0.5 K/mcL (0.0-1.3); Monocytes % 9.3 %; Neutrophils # 3.7 K/mcL (1.6-8.9); Platelet Count 170 K/mcL (140-400); Red Blood Count 3.68 M/mcL (4.19-5.50); Red Cell Distribution Width 14.3 % (11.5-14.5); Segmented Neutrophils % 74.6 %
[2021-10-01 04:47] LABS: BUN/Creatinine Ratio 20 (6-26); Blood Urea Nitrogen 23 mg/dL (8-23); Calcium 8.8 mg/dL (8.6-10.3); Carbon Dioxide 29 mEq/L (23-29); Chloride 105 mEq/L (98-107); Glucose 113 mg/dL (70-105); Magnesium 1.8 mg/dL (1.6-2.6); Osmolality,Calculated 296 (280-300); Potassium 3.8 mEq/L (3.5-5.1); Sodium 141 mEq/L (136-145); eGFR For African Americans > 60 (> 60); eGFR For Non-African Americans > 60 (> 60)
[2021-10-01] MEDS: levETIRAcetam 250 MG TABLET PO SCH ×2 (06:00→19:31)
[2021-10-01] MEDS: Ascorbic Acid 500 MG TABLET PO SCH ×2 (07:43→16:47)
[2021-10-01] MEDS: *HR* OxyCODONE Immed Rel 5 MG TABLET PO PRN ×3 (07:44→19:31)
[2021-10-01] MEDS: Aspirin Enteric Coated 81 MG Tablet PO SCH (10:10)
[2021-10-01] MEDS: Gabapentin 300 MG CAPSULE PO SCH (10:10)
[2021-10-01] MEDS: Venlafaxine XR (24 HR) 75 MG CAP.ER.24H PO SCH (10:10)
[2021-10-01] MEDS: Cyanocobalamin (B-12) 1,000 MCG TABLET PO SCH (10:11)
[2021-10-01] MEDS: Multivit/Ca/Min/Fe/FA 1 TAB TABLET PO SCH (10:11)
[2021-10-01] MEDS: Lactobacillus 1 EACH CAP.SPRINK PO SCH (10:11)
[2021-10-01] MEDS: amLODIPine 5 MG TABLET PO SCH (10:11)
[2021-10-01] MEDS: QUEtiapine Fumarate 25 MG TABLET PO SCH (10:11)
[2021-10-01 15:18] VITALS: BP 110/62; PULSE 91; TEMP 98; O2SAT 99
[2021-10-01 16:04] LABS: Adenovirus Not Detected (Not Detect); Bordetella Pertussis Not Detected (Not Detect); Chlamydophila pneumoniae Not Detected (Not Detect); Coronavirus 229E Not Detected (Not Detect); Coronavirus HKU1 Not Detected (Not Detect); Coronavirus NL63 Not Detected (Not Detect); Coronavirus OC43 Not Detected (Not Detect); Human Metapneumovirus Not Detected (Not Detect); Human Rhinovirus/Enterovirus Not Detected (Not Detect); Influenza A Subtype 2009 H1 Not Detected (Not Detect); Influenza B Not Detected (Not Detect); Mycoplasma pneumoniae Not Detected (Not Detect); Parainfluenza Virus 1 Not Detected (Not Detect); Parainfluenza Virus 2 Not Detected (Not Detect); Parainfluenza Virus 3 Not Detected (Not Detect); Parainfluenza Virus 4 Not Detected (Not Detect); Respiratory Syncytial Virus Not Detected (Not Detect); SARS-CoV-2 Not Detected (Not Detect)
[2021-10-01] MEDS ORDERED: *HR* LORazepam 1 MG TABLET PO ONE (19:37)
== END 2021-10-01 20:17 | DRG 470 ==
LOC: SDCAOSI 08:34 → 4WAOSI 08:34 → SUATTDRO 09-27 11:01
PROVIDERS: ADMIT Orthopaedic Surgery; ATTEND Pharmacist

== ENCOUNTER 2021-10-23 11:23 | Observation (INO) ==
[2021-10-23 12:21] LABS: Basophils # 0.1 K/mcL (0.0-0.2); Basophils % 0.9 %; Eosinophils # 0.1 K/mcL (0.0-0.6); Eosinophils % 2.5 %; Hematocrit 36.2 % (37.5-50.1); Hemoglobin 12.6 g/dL (12.9-16.9); Immature Granulocytes % 0.2 % (0-4); Lymphocytes # 1.1 K/mcL (0.6-4.6); Lymphocytes % 18.8 %; Mean Corpuscular HGB Conc 34.8 g/dL (31.6-35.5); Mean Corpuscular Hemoglobin 32.1 pg (28.0-33.3); Mean Corpuscular Volume 92.1 fL (83.0-100.0); Mean Platelet Volume 10.9 fL (9.4-12.4); Monocytes # 0.6 K/mcL (0.0-1.3); Monocytes % 9.8 %; Neutrophils # 3.8 K/mcL (1.6-8.9); Platelet Count 226 K/mcL (140-400); Red Blood Count 3.93 M/mcL (4.19-5.50); Red Cell Distribution Width 15.9 % (11.5-14.5); Segmented Neutrophils % 67.8 %; White Blood Count 5.6 K/mcL (4.3-11.1)
[2021-10-23 13:14] LABS: Alanine Aminotransferase 15 Units/L (7-52); Albumin 4.5 g/dL (3.5-5.7); Albumin/Globulin Ratio 1.5 (1.1-2.2); Alkaline Phosphatase 91 Units/L (34-104); Aspartate Amino Transferase 18 Units/L (13-39); BUN/Creatinine Ratio 14 (6-26); Bilirubin,Direct 0.1 mg/dL (0.0-0.2); Bilirubin,Indirect 0.4 mg/dL (0.0-1.0); Bilirubin,Total 0.5 mg/dL (0.3-1.0); Blood Urea Nitrogen 21 mg/dL (8-23); Calcium 10.4 mg/dL (8.6-10.3); Carbon Dioxide 23 mEq/L (23-29); Chloride 103 mEq/L (98-107); Ethanol < 10 mg/dL (Less than 10); Glucose 92 mg/dL (70-105); Osmolality,Calculated 291 (280-300); Potassium 4.2 mEq/L (3.5-5.1); Sodium 139 mEq/L (136-145); Total Protein 7.5 g/dL (6.4-8.9); Troponin I < 0.03 ng/mL (< 0.04); eGFR For African Americans 57 (> 60); eGFR For Non-African Americans 47 (> 60)
[2021-10-23 14:15] LABS: Bilirubin,Urine Negative (Negative); Blood,Urine Negative (Negative); Clarity,Urine Clear (Clear); Color,Urine Light-Yellow (Yellow); Glucose,Urine (UA) Normal (Normal); Ketones,Urine Negative (Negative); Leukocyte Esterase,Urine Negative (Negative); Nitrite,Urine Negative (Negative); Protein,Urine Negative (Neg-Trace); Specific Gravity,Urine 1.012 (1.010-1.025); Urobilinogen,Urine Normal (Normal)
[2021-10-23 14:23] LABS: Amphetamine Screen,Urine Negative ng/mL (Cutoff=1000); Barbiturate Screen,Urine Negative ng/mL (Cutoff=200); Benzodiazepines Screen,Urine Negative ng/mL (Cutoff=200); Cannabinoid Screen,Urine Negative ng/mL (Cutoff = 50); Cocaine Screen,Urine Negative ng/mL (Cutoff= 300); Opiate Screen,Urine Negative ng/mL (Cutoff=300); Phencyclidine Screen,Urine Negative ng/mL (Cutoff=25)
[2021-10-23] MEDS ORDERED: Isovue-370 500 ML BOTTLE IVP ONE (15:03)
[2021-10-23] MEDS ORDERED: Naloxone 0.4 MG/ML INJ IVP PRN (15:29)
[2021-10-23] MEDS ORDERED: Melatonin 3 MG TABLET PO PRN (15:29)
[2021-10-23] MEDS ORDERED: Ondansetron ODT 4 MG TAB.RAPDIS SL PRN (15:29)
[2021-10-23] MEDS ORDERED: Acetaminophen 325 MG TABLET PO PRN (15:29)
[2021-10-23] MEDS: Levalbuterol Neb 1.25 MG/3 ML IH SCH ×3 (16:02→22:55)
[2021-10-23] MEDS ORDERED: *HR* LORazepam 0.5 MG TABLET PO PRN (16:43)
[2021-10-23] MEDS: levETIRAcetam 250 MG TABLET PO SCH (20:45)
[2021-10-23] MEDS: Gabapentin 300 MG CAPSULE PO SCH (20:47)
[2021-10-23] MEDS: Chlorhexidine Rinse 15 ML MOUTHWASH MM SCH (20:48)
[2021-10-23 22:37] LABS: BUN/Creatinine Ratio 14 (6-26); Blood Urea Nitrogen 19 mg/dL (8-23); Calcium 9.3 mg/dL (8.6-10.3); Carbon Dioxide 25 mEq/L (23-29); Chloride 104 mEq/L (98-107); Glucose 110 mg/dL (70-105); Osmolality,Calculated 289 (280-300); Potassium 3.3 mEq/L (3.5-5.1); Sodium 138 mEq/L (136-145); eGFR For African Americans > 60 (> 60); eGFR For Non-African Americans 50 (> 60)
[2021-10-23] MEDS: Budesonide/Formoterol 160/4.5 1 PUFF INH IH SCH (22:55)
[2021-10-24 02:02] LABS: VBG HCO3 25 mEq/L (21-27); VBG PCO2 42 mmHg (41-51); VBG PH 7.38 pH Units (7.32-7.42); VBG PO2 166 mmHg (25-50)
[2021-10-24 02:19] LABS: BUN/Creatinine Ratio 14 (6-26); Blood Urea Nitrogen 20 mg/dL (8-23); Calcium 9.7 mg/dL (8.6-10.3); Carbon Dioxide 22 mEq/L (23-29); Chloride 105 mEq/L (98-107); Glucose 50 mg/dL (70-105); Osmolality,Calculated 288 (280-300); Potassium 4.1 mEq/L (3.5-5.1); Sodium 139 mEq/L (136-145); eGFR For African Americans > 60 (> 60); eGFR For Non-African Americans 51 (> 60)
[2021-10-24 02:25] LABS: Basophils # 0.1 K/mcL (0.0-0.2); Eosinophils # 0.1 K/mcL (0.0-0.6); Eosinophils % 2.4 %; Hematocrit 35.9 % (37.5-50.1); Hemoglobin 11.8 g/dL (12.9-16.9); Immature Granulocytes % 0.2 % (0-4); Lymphocytes % 19.7 %; Mean Corpuscular HGB Conc 32.9 g/dL (31.6-35.5); Mean Corpuscular Hemoglobin 31.2 pg (28.0-33.3); Mean Platelet Volume 11.5 fL (9.4-12.4); Monocytes # 0.6 K/mcL (0.0-1.3); Monocytes % 11.8 %; Neutrophils # 3.2 K/mcL (1.6-8.9); Platelet Count 211 K/mcL (140-400); Red Blood Count 3.78 M/mcL (4.19-5.50); Red Cell Distribution Width 16.3 % (11.5-14.5); Segmented Neutrophils % 64.9 %; White Blood Count 4.9 K/mcL (4.3-11.1)
[2021-10-24] MEDS: Levalbuterol Neb 1.25 MG/3 ML IH SCH ×2 (04:13→10:30)
[2021-10-24 05:43] LABS: Basophils % 0.9 %; Eosinophils # 0.2 K/mcL (0.0-0.6); Eosinophils % 3.8 %; Hematocrit 33.5 % (37.5-50.1); Hemoglobin 11.5 g/dL (12.9-16.9); Immature Granulocytes % 0.2 % (0-4); Lymphocytes # 0.8 K/mcL (0.6-4.6); Lymphocytes % 18.7 %; Mean Corpuscular HGB Conc 34.3 g/dL (31.6-35.5); Mean Corpuscular Hemoglobin 31.9 pg (28.0-33.3); Mean Corpuscular Volume 93.1 fL (83.0-100.0); Mean Platelet Volume 11.3 fL (9.4-12.4); Monocytes # 0.6 K/mcL (0.0-1.3); Monocytes % 14.9 %; Neutrophils # 2.6 K/mcL (1.6-8.9); Platelet Count 193 K/mcL (140-400); Segmented Neutrophils % 61.5 %; White Blood Count 4.2 K/mcL (4.3-11.1)
[2021-10-24 05:59] LABS: BUN/Creatinine Ratio 14 (6-26); Blood Urea Nitrogen 18 mg/dL (8-23); Calcium 9.2 mg/dL (8.6-10.3); Carbon Dioxide 23 mEq/L (23-29); Chloride 105 mEq/L (98-107); Chol/HDL Ratio 1.9 (0-4.9); Cholesterol 88 mg/dL (< 200); Glucose 97 mg/dL (70-105); HDL Cholesterol 46 mg/dL (40-59); LDL Cholesterol,Calculated 20 mg/dL (< 100); Magnesium 1.9 mg/dL (1.6-2.6); Osmolality,Calculated 290 (280-300); Phosphorous 4.6 mg/dL (2.7-4.5); Potassium 3.5 mEq/L (3.5-5.1); Sodium 139 mEq/L (136-145); Triglycerides 108 mg/dL (< 150); eGFR For African Americans > 60 (> 60); eGFR For Non-African Americans 54 (> 60)
[2021-10-24 06:50] VITALS: BP 123/71; PULSE 88; TEMP 99.2; O2SAT 98
[2021-10-24] MEDS ORDERED: Aspirin 81 MG TAB.CHEW PO SCH (09:00)
[2021-10-24] MEDS ORDERED: Venlafaxine XR (24 HR) 150 MG CAP.ER.24H PO SCH (09:00)
[2021-10-24] MEDS ORDERED: amLODIPine 5 MG TABLET PO SCH (09:00)
[2021-10-24] MEDS: Budesonide/Formoterol 160/4.5 1 PUFF INH IH SCH (10:29)
[2021-10-24] MEDS: Gabapentin 300 MG CAPSULE PO SCH (10:30)
[2021-10-24] MEDS: Chlorhexidine Rinse 15 ML MOUTHWASH MM SCH (10:30)
[2021-10-24] MEDS: levETIRAcetam 250 MG TABLET PO SCH (10:30)
[2021-10-24] MEDS ORDERED: *HR* OxyCODONE/APAP 5/325 TABLET PO PRN (11:42)
== END 2021-10-24 13:15 | disposition home health service (06) ==
LOC: 3NENU 11:23 → EMEROOARM 11:23 → SUATTDRO 15:19 → 3NENU 16:01
PROVIDERS: ADMIT Internal Medicine; ATTEND Family Medicine